=== PATIENT | female | born 1990 | race Caucasian/White ===

== ENCOUNTER 2017-09-09 07:59 | Inpatient (IN) | payer BC, OTHER ==
[~2017-09-09] VITALS: Ht 157.5 cm; Wt 49.9 kg
[2017-09-09] MEDS ORDERED: MAG HYDROX/AL HYDROX/SIMETH 30 ML LIQUID UDC PO PRN (23:00)
[2017-09-09] MEDS ORDERED: ACETAMINOPHEN 325 MG TABLET PO PRN (23:00)
[2017-09-09] MEDS ORDERED: IBUPROFEN 600 MG TABLET PO PRN (23:00)
[2017-09-09] MEDS ORDERED: BUPRENORPHINE HCL 2 MG TAB.SUBL SL PRN (23:00)
[2017-09-09] MEDS ORDERED: LORAZEPAM 2 MG/1 ML VIAL IM PRN (23:00)
[2017-09-09] MEDS ORDERED: NICOTINE 7 MG/24HR PATCH TD PRN (23:00)
[2017-09-09] MEDS ORDERED: DICYCLOMINE HCL 20 MG TABLET PO PRN (23:00)
[2017-09-09] MEDS ORDERED: ONDANSETRON 4 MG/2 ML VIAL IM PRN (23:00)
[2017-09-09] MEDS ORDERED: ONDANSETRON ODT 4 MG TAB.RAPDIS SL PRN (23:00)
[2017-09-09] MEDS ORDERED: HYDROXYZINE PAMOATE 25 MG CAPSULE PO PRN (23:00)
[2017-09-09] MEDS ORDERED: LOPERAMIDE HCL 2 MG CAPSULE PO PRN ×2 (23:00)
[2017-09-09] MEDS ORDERED: MAGNESIUM HYDROXIDE 30 ML LIQUID UDC PO PRN (23:00)
[2017-09-09] MEDS ORDERED: NICOTINE POLACRILEX 4 MG GUM-PK OF TEN BC PRN (23:00)
[2017-09-09] MEDS ORDERED: LORAZEPAM 1 MG TABLET PO PRN ×2 (23:00)
[2017-09-09] MEDS ORDERED: METHOCARBAMOL 750 MG TABLET PO PRN (23:00)
[2017-09-09] MEDS ORDERED: MIRALAX 17 GM POWD.PACK PO PRN (23:00)
[2017-09-09] MEDS ORDERED: CLONIDINE HCL 0.1 MG TABLET PO PRN (23:00)
[2017-09-09] MEDS ORDERED: diphenhydrAMINE 50 MG CAPSULE PO PRN (23:00)
--- NOTE | 2017-09-09 23:15 | NUR ---
PREASSESSMENT PATIENT ALERT AND ORIENTED X 3. VITAL SIGNS: 120/73, P 77, T 97.8, R 16, SPO2 98% ON RA. PATIENT WITH NKA. CURRENTLY USING HEROIN METHAMPHETAMINE, XANAX, AND MARIJUANA. PATIENT REPORTS LAST USED TODAY AT 8PM METHAMPHETAMINE 2 "HITS" AND HEROIN .2 GMS. PATIENT CURRENTLY WITH NO WITHDRAWAL SYMPTOMS. DENIES SEIZURE HISTORY. DENIES MEDICAL HISTORY. PATIENT REPORTS HISTORY OF ANXIETY AND DEPRESSION. HOME MEDS WITH PATIENT. PATIENT WITH STEADY GAIT AND ABLE TO AMBULATE INDEPENDENTLY.
--- NOTE | 2017-09-09 23:30 | NUR ---
NURSING ADMISSION PATIENT IS A 27 YEAR OLD FEMALE ADMITTED ON 09-09-17 AT 2330 FOR OPIATE DETOX, PATIENT ALSO USES OCCASIONAL BENZODIAZEPINE (XANAX), METHAMPHETAMINE DAILY, AND MARIJUANA. PATIENT IS ALERT AND ORIENTED X 3 AMBULATES INDEPENDENTLY WITH STEADY GAIT AND NO HISTORY OF FALLS OR SEIZURES. PATIENT DENIES ANY ALLERGIES. sHE IS A FULL CODE AND ON A REGULAR DIET. PAST PSYCHIATRIC HISTORY OF ANXIETY AND DEPRESSION. DENIES PAST MEDICAL HISTORY OTHER THAN BREAST AUGMENTATION IN JANUARY 2017 AND HISTORY OF IN DECEMBER 2016. PATIENT HOME MEDICATIONS INCLUDE PROPRANOLOL 10 MG PO BID PRN ANXIETY, GABAPENTIN 300 MG PO BID AND 600 MG PO QHS, AND SEROQUEL 100 MG PO BEDTIME PRN INSOMNIA. PATIENT STATES NO CURRENT PCP AND ALL MEDS ORDERED WERE ORDERED BY PSYCHIATRIST AT [facility] PRO[facility]. PATIENT PROVIDED URINE DRUG SCREEN POSITIVE FOR OPIATES, AMPHETAMINE, AND MARIJUANA. PATIENT ORIENTED TO UNIT AND FACILITY. BODY SEARCH COMPLETED WITH SMALL 0.2 CM SCABBED AREA ON POSTERIOR RIGHT SHOULDER. NO OPENED AREA. NO LESIONS OR RASHES OF NOTE. WEIGHT 110 HEIGHT 5'2" UPON ADMISSION CIWA 8 COWS 4. VITAL SIGNS BP 124/80, P 78, R 18, SPO2 98% ON RA, T 98.0 RECEIVED ONE TIME DOSE OF ATIVAN 2MG PO AT 0018 PER MD ORDER. LBM 09-08-17. LMP 2 WEEKS AGO. URINE HCG NEGATIVE. SWAB OF NARES COMPLETED FOR MRSA. WAS INPATIENT REHAB IN 2016. SAFETY MEASURES IN PLACE, BED LOCKED IN LOWEST POSITION WITH 2 PADDED SIDE RAILS UP. CALL LIGHT WITHIN REACH. WILL CONTINUE TO MONITOR SUBSTANCE ABUSE HISTORY: HEROIN FIRST USED AGE 18, CURRENT USE DAILY 0.5-1 GM IV LAST USED 09-09-17 AT 1999. METHAMPHETAMINE FIRST USED AGE 24 CURRENT USE DAILY 2-3 "HITS" INHALATION LAST USED 09-09-17 AT 2000 XANAX FIRST USED AGE 18 CURRENT USE 2-3 TIMES WEEKLY 0.5-2MG PO LAST USE 09-07-17 0.5MG MARIJUANA FIRST USED AGE 15 CURRENT USE 2-3 HITS INHALATION LAST USED 2 WEEKS AGO
[2017-09-09 23:38] LABS: BASOPHILS % (AUTO) 0.3 % (0.0-2.0); EOSINOPHILS # (AUTO) 0.1 K/uL (0.0-0.7); EOSINOPHILS % (AUTO) 0.5 % (0.0-7.0); HEMATOCRIT 43.5 % (37-47); HEMOGLOBIN 14.4 G/DL (12.0-16.0); LYMPHOCYTES # (AUTO) 2.2 K/UL (0.8-4.8); LYMPHOCYTES % (AUTO) 21.3 % (20.5-51.5); MEAN CORPUSCULAR HEMOGLOBIN 30.4 UUG (27.0-31.0); MEAN CORPUSCULAR HGB CONC 33 g/dL (32.0-37.0); MEAN CORPUSCULAR VOLUME 92.1 FL (81.0-99.0); MONOCYTES # (AUTO) 0.2 K/UL (0.1-1.30); MONOCYTES % (AUTO) 1.6 % (0.0-11.0); NEUTROPHILS # (AUTO) 7.9 K/UL (1.8-8.9); NEUTROPHILS % (AUTO) 76.3 % (38.5-71.5); PLATELET COUNT (AUTO) 263 K/UL (150-450); RED BLOOD CELL COUNT(AUTO) 4.72 MIL/UL (4.2-5.4); WHITE BLOOD COUNT (AUTO) 10.4 K/UL (4.0-11.2)
[2017-09-09 23:47] LABS: ALANINE AMINOTRANSFERASE 22 U/L (14-59); ALKALINE PHOSPHATASE 85 U/L (50-136); ASPARTATE AMINOTRANSFERASE 21 U/L (15-37); BILIRUBIN,TOTAL 0.5 mg/dL (0.2-1.0); CARBON DIOXIDE 29 mmol/L (21-32); CHLORIDE 102 mmol/L (98-107); CREATININE 0.7 mg/dL (0.6-1.3); GLUCOSE 80 mg/dL (74-106); MAGNESIUM 2.2 mg/dL (1.8-2.4); POTASSIUM 3.7 mmol/L (3.5-5.1); TOTAL PROTEIN, SERUM 8.5 g/dL (6.4-8.2); UREA NITROGEN, BLOOD 8 mg/dL (7-18)
[2017-09-09 23:52] LABS: *URINE HCG, QUAL NEGATIVE (NEGATIVE)
[2017-09-10] VITALS: BP 124/80
[2017-09-10] LABS: *AMPHETAMINE, URINE POSITIVE (NEGATIVE); *BARBITURATE, URINE NEGATIVE (NEGATIVE); *CANNABINOID, URINE POSITIVE (NEGATIVE); *COCCAINE, URINE NEGATIVE (NEGATIVE); *OPIATE, URINE POSITIVE (NEGATIVE); *PHENCYCLIDINE SCREEN,URINE NEGATIVE (NEGATIVE)
[2017-09-10 00:05] LABS: ETHANOL < 3 MG/DL (0-0)
[2017-09-10] MEDS ORDERED: LORAZEPAM 1 MG TABLET PO ONE (00:15)
[2017-09-10] MEDS ORDERED: GABA-534 PO (02:25)
[2017-09-10] MEDS ORDERED: GABA600T2 PO (02:25)
[2017-09-10] MEDS ORDERED: PROP10TA10 PO (02:26)
[2017-09-10] MEDS ORDERED: QUET100T PO (02:27)
[2017-09-10] MEDS ORDERED: ACET-73 PO (02:35)
[2017-09-10] MEDS ORDERED: IBUP-1610 PO (02:36)
[2017-09-10] MEDS ORDERED: MELA5TAB PO (02:37)
[2017-09-10] MEDS ORDERED: TRAZ-147 PO (02:38)
[2017-09-10 04:00] VITALS: BP 116/74
--- NOTE | 2017-09-10 04:00 | NUR ---
CIWA/COWS DEFERRED PATIENT ASLEEP AT 0400 CIWA AND COWS DEFERRED DUE TO SLEEP
--- NOTE | 2017-09-10 06:55 | NUR ---
END OF SHIFT PATIENT IS A 27 YEAR OLD FEMALE ADMITTED ON 09-09-17 FOR OPIATE DETOX, PATIENT ALSO USES OCCASIONAL BENZODIAZEPINE (XANAX), METHAMPHETAMINE DAILY, AND MARIJUANA. LAST USED HEROIN AND METHAMPHETAMINE AT 8PM ON 09-09-17 REPORTS LAST BENZO USE APPROXIMATELY 09-07-17. PATIENT DENIES ANY ALLERGIES. SHE IS A FULL CODE AND ON A REGULAR DIET. SHE HAS A PAST HISTORY OF ANXIETY AND DEPRESSION. DENIES SI OR HI MOOD IS DYSTHYMIC AND TEARFUL AT TIMES. PATIENT HOME MEDICATIONS INCLUDE PROPRANOLOL 10 MG PO BID PRN ANXIETY, GABAPENTIN 300 MG PO BID AND 600 MG PO QHS, AND SEROQUEL 100 MG PO BEDTIME PRN INSOMNIA. HOME MEDS RECONCILED. WEIGHT 110 LBS HEIGHT 5'2" LAST COWS 8 CIWA 4. VS AT 0400 BP 116/74, P 74, R 16, SPO2 98% ON RA. PATIENT RECEIVED ONE TIME DOSE OF ATIVAN 2MG PO AT 0018 PER MD ORDER. SAFETY MEASURES IN PLACE, BED LOCKED IN LOWEST POSITION WITH 2 PADDED SIDE RAILS UP ,CALL LIGHT WITHIN REACH. FALL AND SEIZURE PRECAUTIONS ORDERED. NO SEIZURE HISTORY REPORTED. SLEPT A TOTAL OF 4 HOURS. INTAKE 1700 ml OUTPUT 5 VOIDS. WILL CONTINUE TO MONITOR. REPORT TO AM NURSE.
--- NOTE | 2017-09-10 07:49 | NUR ---
START OF SHIFT Rcvd endorsement from ongoing nurse, client is in room, She is a/o to name, place, and situation, she presents with depressed mood, flat affect, clammy skin, she reports being cold and upset stomach, but she refused any medication at this time. Client is fully ambulatory. Encourage client to attend group therapy for skills to maintain sober. Encourage client to increase PO fluid intake as tolerated to facilitate detox. Client is a 27 yo female, admitted to [facility] for withdrawal from heroin and intermittent use of alprazolam. She is schedule to start a 5 day Subutex taper this am. Last CIWA 8 / 4 @ 2400. She slept 4 hrs. Client reported NKA, full code, regular diet. Client denies a hx of withdrawal-induced seizure. Side rails x 2 up/padded, bed in lowest/lock position. Call light within reach.
[2017-09-10 08:00] VITALS: BP 114/78
[2017-09-10] MEDS ORDERED: TUBERCULIN,PURIF.PROT.DERIV. 5 TU/0.1 ML TEST ID ONE (09:00)
[2017-09-10] MEDS: BUPRENORPHINE HCL 2 MG TAB.SUBL SL SCH ×3 (09:00→22:09)
[2017-09-10] MEDS: MULTIVITAMINS,THERAPEUTIC TABLET PO SCH (09:55)
[2017-09-10] MEDS: GABAPENTIN 300 MG CAPSULE PO SCH ×3 (09:55→22:09)
--- NOTE | 2017-09-10 09:58 | NUR ---
Client refused Subutex 4mg SL stating, "I have cold/chills and my stomach hurts, but I know, I am not ready for the Subutex yet, I used heroin before I came here." Last COWS 7. Dr. Garcia notified. Charge nurse indicated to waste the opened Subutex 4mg.
[2017-09-10] MEDS ORDERED: QUETIAPINE FUMARATE 100 MG TABLET PO PRN (10:30)
[2017-09-10 12:00] VITALS: BP 129/89
--- NOTE | 2017-09-10 15:00 | NUR ---
Client refused Subutex 4mg SL stating, "I don't need it yet, I used a lot of heroin before admission." Last COWS 6. Dr. Garcia notified.
[2017-09-10 16:55] VITALS: BP 102/58
--- NOTE | 2017-09-10 19:15 | NUR ---
START OF SHIFT Received 27 year old female patient admitted on 09/09/17 for Xanax, Heroin, Methamphetamine, and Marijuana dependency. Pt is full code with NKiRto. She reports a PMHx of anxiety and depression. Pt reports using Xanax PO 0.25mg-2 mg daily for 1 month. Last dose was 0.5 mg on 09/07/17. Heroin IV/smoke 0.5 gram daily for 1 month. Last dose was 2 grams on 09/09/17. Methamphetamine 2 hits daily for 1 month. Last dose was 2 hits on 09/09/17. And Marijuana 2-3 hits daily for 1 month. Last dose was 2 hits on 08/24/17. Pt placed on Subutex taper started on 09/10/17. Per endorsement, pt did not receive or request PRN medications. Pt is alert and oriented x4, breathing is even and unlabored. Safety measures in place. Will monitor.
--- NOTE | 2017-09-10 19:27 | NUR ---
START OF SHIFT Client is a 27 yo female, admitted to [facility] for withdrawal from heroin and intermittent use of alprazolam. She is on 5 day Subutex taper. Last CIWA 6 @ 1600. She refused her Subutex taper, stating that she is not withdrawing bad enough yet. Client reported NKA, full code, regular diet. Client denies a hx of withdrawal-induced seizure. Side rails x 2 up/padded, bed in lowest/lock position. Call light within reach. Addendum: 09/10/17 at 1932 by CHALINO PALAFOX RN END OF SHIFT
[2017-09-10 20:00] VITALS: BP 96/69
[2017-09-11] VITALS (7 sets, daily range): BP systolic 94–110; BP diastolic 53–64
--- NOTE | 2017-09-11 | NUR ---
COWS/CIWA DEFERRED Pt lying in bed with eyes closed noted to be asleep. Respirations 16, breathing is even and unlabored. Safety measures in place. Will monitor.
--- NOTE | 2017-09-11 04:00 | NUR ---
COWS AND CIWA DEFERRED COWS and CIWA deferred d/t pt lying in bed with eyes closed noted to be asleep. Respirations 16, breathing is even and unlabored. Safety measures in place. Will monitor.
--- NOTE | 2017-09-11 07:17 | NUR ---
END OF SHIFT Pt is a 27 year old female patient admitted on 09/09/17 for Xanax, Heroin, Methamphetamine, and Marijuana dependency. Pt is full code with NKA. She reports a PMHx of anxiety and depression. Pt placed on Subutex taper started on 09/10/17 at 2200. She did not receive PRN medications. She slept a total of 8hrs, Intake: 1399mL, Void: x3, BM:0, COWS:8, CIWA:5. Pt remains alert and oriented x4, breathing is even and unlabored. Safety measures in place. Endorsed to oncoming shift.
--- NOTE | 2017-09-11 07:20 | NUR ---
Start of shift note SBAR report rcv'd. Pt was admitted for opiate dependence, methamphetamine, benzo, marijuana abuse. Pt has a PMHx of anxiety and depression. Pt is a full code, on a regular diet and denies any allergies. Pt is on a subutex taper and PRN ativan to manage her s/s of withdrawal. Pt is currently resting in bed. Pt has no complaints at this time. Will continue to monitor pt. All needs addressed at this time.
[2017-09-11] MEDS ORDERED: BUPRENORPHINE HCL 2 MG TAB.SUBL SL SCH (09:00)
[2017-09-11] MEDS: MULTIVITAMINS,THERAPEUTIC TABLET PO SCH (09:26)
[2017-09-11] MEDS: GABAPENTIN 300 MG CAPSULE PO SCH ×3 (09:26→21:09)
[2017-09-11 14:07] LABS: HEPATITIS B SURFACE AG Negative (Negative)
[2017-09-11] MEDS: BUPRENORPHINE HCL 2 MG TAB.SUBL SL SCH ×2 (14:52→21:09)
[2017-09-11] MEDS: BACLOFEN 10 MG TABLET PO SCH ×2 (14:52→21:09)
--- NOTE | 2017-09-11 18:57 | NUR ---
End of shift note Pt was admitted for opiate dependence, methamphetamine, benzo, marijuana abuse. Pt is a full code, on a regular diet and denies any allergies. Pt has a PMHx of anxiety and depression. Pt is on a subutex taper and is tolerating it well without any ASE. Pt states that the Subutex is managing her s/s of withdrawal well. Pt had a COWS of 4 at 1600 and a CIWA of 4. Pt has no complaints at this time. Will endorse SBAR to oncoming shift. All needs addressed at this time.
--- NOTE | 2017-09-11 19:15 | NUR ---
START OF SHIFT Received 27 year old female patient admitted on 09/09/17 for Xanax, Heroin, Methamphetamine, and Marijuana dependency. Pt is full code with NKRito. She reports a PMHx of anxiety and depression. Pt reports using Xanax PO 0.25mg-2 mg daily for 1 month. Last dose was 0.5 mg on 09/07/17. Heroin IV/smoke 0.5 gram daily for 1 month. Last dose was 2 grams on 09/09/17. Methamphetamine 2 hits daily for 1 month. Last dose was 2 hits on 09/09/17. And Marijuana 2-3 hits daily for 1 month. Last dose was 2 hits on 08/24/17. Pt currently receiving Subutex taper started on 09/10/17 and is tolerating well. Per endorsement, pt did not receive or request PRN medications. Pt is alert and oriented x4, breathing is even and unlabored. Safety measures in place. Will monitor.
[2017-09-11] MEDS: CLONIDINE HCL 0.1 MG TABLET PO SCH (21:00)
--- NOTE | 2017-09-11 21:09 | NUR ---
PRN SEROQUEL Pt complains of inability to sleep. PRN Seroquel administered as ordered. Breathing even and unlabored. Safety measures in place. Will monitor effectiveness.
--- NOTE | 2017-09-11 21:11 | NUR ---
MEDICATION HELD 2100 clonidine held d/t order is hold for BP less than 100/70. Pt with BP:110/62. Will monitor.
--- NOTE | 2017-09-11 22:09 | NUR ---
PRN SEROQUEL REASSESSMENT PRN medication effective. Pt is lying in bed with eyes closed noted to be asleep. Respirations 16, breathing is even and unlabored. Safety measures in place. Will monitor .
[2017-09-12] VITALS (8 sets, daily range): BP systolic 90–113; BP diastolic 51–71
--- NOTE | 2017-09-12 | NUR ---
COWS/CIWA DEFERRED Pt lying in bed with eyes closed noted to be asleep. Breathing is even and unlabored, respirations 16. Safety measures in place. Will monitor.
--- NOTE | 2017-09-12 04:00 | NUR ---
COWS/CIWA DEFERRED Pt is lying in bed with eyes closed noted to be asleep. Respirations 16, breathing is even and unlabored. Safety measures in place. Will monitor.
--- NOTE | 2017-09-12 07:10 | NUR ---
END OF SHIFT Pt is a 27 year old female patient admitted on 09/09/17 for Xanax, Heroin, Methamphetamine, and Marijuana dependency. Pt is full code with NKA. She reports a PMHx of anxiety and depression. Pt currently receiving Subutex taper started on 09/10/17 and is tolerating well. At 2109 she received PRN Seroquel. She slept a total of 9 hrs, Intake: 1000mL, Void: x2, BM:0, COWS:5, CIWA:5. Pt remains alert and oriented x4, breathing is even and unlabored. Safety measures in place. Endorsed to oncoming shift.
--- NOTE | 2017-09-12 07:15 | NUR ---
Start of shift note SBAR report rcv'd. Pt was admitted for opiate dependence, methamphetamine, benzo, marijuana abuse. Pt has a PMHx of anxiety and depression. Pt is a full code, on a regular diet and denies any allergies. Pt is on a subutex taper and tolerating well without any ASE. Pt has no complaints at this time, pt requesting to sleep at this time. Will continue to monitor pt. All needs addressed at this time.
[2017-09-12] MEDS: CLONIDINE HCL 0.1 MG TABLET PO SCH ×2 (09:00→21:09)
--- NOTE | 2017-09-12 09:00 | NUR ---
Medication held Pt clonidine held d/t decreased BP of 104/62 per MD order. Will continue to monitor pt. BP rechecked x 1, first BP was 95/57.
[2017-09-12] MEDS: BACLOFEN 10 MG TABLET PO SCH (09:47)
[2017-09-12] MEDS: MULTIVITAMINS,THERAPEUTIC TABLET PO SCH (09:47)
[2017-09-12] MEDS: BUPRENORPHINE HCL 2 MG TAB.SUBL SL SCH ×3 (09:47→21:08)
[2017-09-12] MEDS: GABAPENTIN 300 MG CAPSULE PO SCH ×3 (09:47→21:08)
--- NOTE | 2017-09-12 10:58 | NUR ---
PRN administration Pt c/o anxiety, requesting clondine. Administered per MD order. Pt BP is 113/71.
--- NOTE | 2017-09-12 11:58 | NUR ---
Reassessment Pt states that her level anxiety has decreased, pt is resting comfortably in her bed.
[2017-09-12] MEDS: BACLOFEN 20 MG TABLET PO SCH ×2 (14:26→21:09)
--- NOTE | 2017-09-12 19:04 | NUR ---
End of shift note Pt was admitted for opiate dependence, methamphetamine, benzo, marijuana abuse. Pt has a PMHx of anxiety and depression. Pt is a full code, on a regular diet and denies any allergies. Pt is on a subutex taper and tolerating well without any ASE. Pt states that the medications have been managing her s/s of withdrawal well. Pt Clonidine was held at 0900 d/t hypotension. Then at 11:00 pt had anxiety, BP noted to be WNL and pt was given Clonidine, which was effective in alleviating her anxiety. Pt has no complaints at this time, pt requesting to sleep at this time. Pt had a CIWA and COWS of 3 at 1600. Will continue to monitor pt. All needs addressed at this time. Will endorse SBAR to oncoming nurse.
--- NOTE | 2017-09-12 19:15 | NUR ---
START OF SHIFT Received 27 year old female patient admitted on 09/09/17 for Xanax, Heroin, Methamphetamine, and Marijuana dependency. Pt is full code with NKA. She reports a PMHx of anxiety and depression. Pt reports using Xanax PO 0.25mg-2 mg daily for 1 month. Last dose was 0.5 mg on 09/07/17. Heroin IV/smoke 0.5 gram daily for 1 month. Last dose was 2 grams on 09/09/17. Methamphetamine 2 hits daily for 1 month. Last dose was 2 hits on 09/09/17. And Marijuana 2-3 hits daily for 1 month. Last dose was 2 hits on 08/24/17. Pt currently receiving Subutex taper started on 09/10/17 and is tolerating well. Per endorsement, her clonidine 0900 was held d/t decreased BP. She received PRN Clondine at 1059 d/t increased anxiety. Pt is alert and oriented x4, breathing is even and unlabored. Safety measures in place. Will monitor.
[2017-09-13] VITALS: BP 102/64
--- NOTE | 2017-09-13 | NUR ---
COWS/CIWA DEFERRED COWS and CIWA deferred d/t pt lying in bed with eyes closed noted to be asleep. Breathing is even and unlabored, respirations 16. Safety measures in place. Will continue to monitor.
[2017-09-13 04:00] VITALS: BP 98/55
--- NOTE | 2017-09-13 07:20 | NUR ---
END OF SHIFT Pt is a 27 year old female patient admitted on 09/09/17 for Xanax, Heroin, Methamphetamine, and Marijuana dependency. Pt is full code with NKA. She reports a PMHx of anxiety and depression. Pt currently receiving 4 Subutex taper started on 09/10/17. She is on day 4/4 and is tolerating well. She did not receive or request PRN medications. She slept a total of 7hrs, Intake: 1500mL, Void: x4, BM:0, COWS:4, CIWA:4. Pt remains alert and oriented x4, breathing is even and unlabored. Safety measures in place. Endorsed to oncoming shift.
--- NOTE | 2017-09-13 07:35 | NUR ---
START OF SHIFT Pt is a 27 yr old female, A&Ox4. Pt was admitted on 09/09/17 for Opiate/Benzo Dependence and is on 4 day Subutex taper as ordered. Medication odilon well. Received report from scene shifter nurse. Pt slept for 7 hr during the night. No PRN's were given. Last COWS and CIWA score was 4 at 2200. Pt is currently in bed resting with respirations even and unlabored. No acute distress noted. Skin is intact, warm and dry to touch. Pt denies any n/v or pain. Pt is on fall and seizure precautions. Call light is within reach. Will continue to monitor.
[2017-09-13 08:00] VITALS: BP 93/61
[2017-09-13] MEDS ORDERED: BUPRENORPHINE HCL 2 MG TAB.SUBL SL SCH (09:00)
[2017-09-13] MEDS: BACLOFEN 20 MG TABLET PO SCH ×3 (09:42→20:40)
[2017-09-13] MEDS: MULTIVITAMINS,THERAPEUTIC TABLET PO SCH (09:42)
[2017-09-13] MEDS: GABAPENTIN 300 MG CAPSULE PO SCH ×3 (09:42→20:40)
[2017-09-13] MEDS: CLONIDINE HCL 0.1 MG TABLET PO SCH ×2 (09:42→20:40)
[2017-09-13 12:00] VITALS: BP 109/71
--- NOTE | 2017-09-13 14:10 | NUR ---
THerapist prompted client to attend today's group. Client agreed to attend
[2017-09-13] MEDS ORDERED: DICY20TA28 PO (15:41)
[2017-09-13] MEDS ORDERED: GABA-534 PO (15:41)
[2017-09-13] MEDS ORDERED: IBUP-1955 PO (15:41)
[2017-09-13] MEDS ORDERED: NICO4GUM38 BC (15:41)
[2017-09-13] MEDS ORDERED: HYDR-3895 PO (15:41)
[2017-09-13] MEDS ORDERED: BACL20TA PO (15:41)
[2017-09-13] MEDS ORDERED: CLON0.1T14 PO (15:41)
[2017-09-13 16:00] VITALS: BP 113/59
--- NOTE | 2017-09-13 18:53 | NUR ---
END OF SHIFT Pt is a 27 yr old female, A&Ox4. Pt was admitted on 09/09/17 for Opiate/Benzo Dependence and has completed 4 day Subutex taper as ordered. Medication odilon well. Pt has been cooperative with medication regimen and plan of care. No PRN's were given. Last COWS score was 2 and CIWA score was 1 at 1600. Pt is to be discharged tomorrow on 09/14/17. Discharge order is complete. Pt c/o mild anxiety but is able to cope with anxiety level. No acute distress noted. Skin is intact, warm and dry to touch. Pt denies any n/v or pain. Pt is on fall and seizure precautions. Call light is within reach.
--- NOTE | 2017-09-13 19:15 | NUR ---
Start of Shift Note: Patient is a 27 y/o female admitted on 09/09/17 for Opiate dependence. Patient reported with PMHx of Anxiety & Depression. No seizure history noted. Patient is on a regular diet with no known food and drug allergies. Full Code. Patient completed her Subutex taper and she is scheduled to be discharge tomorrow. Last COWS 2 CIWA 1. No PRN medication given during day shift. Skin noted to be intact. . Patient has right forearm abscess and he is on ATB Bactrim with no A/R noted. Patient is alert & oriented x4. No shortness of breath noted. Respiration even & unlabored. Abdomen soft & non-distended. No nausea noted. Patient complains of slight anxiety and chills. No hand tremors noted. Patient denies any hallucinations. Safety precautions are in place. Bed locked in lowest position. Both side rails up. Call light within pts reach. Will continue to monitor patient.
[2017-09-13 20:00] VITALS: BP 113/75
[2017-09-14] VITALS: BP 102/62
--- NOTE | 2017-09-14 07:10 | NUR ---
Start of shift note SBAR report rcv'd. Pt was admitted for opiate and benzo dependence. Methamphetamine and marijuana abuse. Pt is a full code, on a regular diet and denies any allergies. Pt has completed a subutex taper without any ASE. Pt is scheduled to discharge today to the [facility]. Pt has no complaints at this time. Will continue to monitor pt. All needs addressed at this time.
--- NOTE | 2017-09-14 07:12 | NUR ---
End of Shift Note: Patient had an uneventful night. Pt completed her taper and she is scheduled to be discharge today. Last COWS 3 CIWA 2. No PRN medication given during my shift. Patient remains stable and vitals remains WNL. Pt slept for a total of 6 hours.Pt consumed 2250ml of fluids. Pt voided 6x with no bowel movement. All needs attended & met. Safety measures in place. Will endorse pt to day shift nurse.
[2017-09-14 08:00] VITALS: BP 90/51
[2017-09-14 09:11] VITALS: BP 107/70
[2017-09-14 09:13] VITALS: BP 107/70
[2017-09-14] MEDS: GABAPENTIN 300 MG CAPSULE PO SCH (09:13)
[2017-09-14] MEDS: BACLOFEN 20 MG TABLET PO SCH (09:13)
[2017-09-14] MEDS: MULTIVITAMINS,THERAPEUTIC TABLET PO SCH (09:13)
[2017-09-14] MEDS: CLONIDINE HCL 0.1 MG TABLET PO SCH (09:13)
--- NOTE | 2017-09-14 09:40 | NUR ---
Discharge note Pt was admitted for opiate dependence. Pt successfully completed a subutex taper without any ASE. Pt VS are WNL. Pt had a COWS of 2 and a CIWA of 1. Pt states that she feels ready for discharge. Verbalized her understanding of the discharge instructions. Verbalized her understanding of electronic prescription instructions. All belongings and medication returned to pt. Pt ID band removed, pt ambulated off of unit with [employer], left facility via [facility] for the [facility].
== END 2017-09-14 09:40 | disposition home or self-care (01) | DRG 895 ==
LOC: SRC 22:21
PROVIDERS: ADMIT Internal Medicine; ATTEND Internal Medicine
PROC: HZ2ZZZZ Detoxification Services for Substance Abuse Treatment (ICD-10-PCS; principal; 2017-09-09)
PROC: HZ31ZZZ Individual Counseling for Substance Abuse Treatment, Behavioral (ICD-10-PCS; 2017-09-12)
PROC: HZ41ZZZ Group Counseling for Substance Abuse Treatment, Behavioral (ICD-10-PCS; 2017-09-13)
DX: F11.23 Opioid dependence with withdrawal (principal); F12.90 Cannabis use, unspecified, uncomplicated; Z59.1 Inadequate housing; F15.23 Other stimulant dependence with withdrawal; F13.10 Sedative, hypnotic or anxiolytic abuse, uncomplicated; F17.210 Nicotine dependence, cigarettes, uncomplicated; G47.00 Insomnia, unspecified; F32.9 Major depressive disorder, single episode, unspecified; F41.1 Generalized anxiety disorder
CPT/HCPCS: 36415; 70030-TC; 80307; 80324; 80349; 80361; 83735; 84703; 85025; 86580; 86592; 86705; 86803; 87340; 87806; G0480